=== PATIENT | female | born 1995 | race Caucasian/White ===

== ENCOUNTER 2019-02-21 23:03 | Emergency (ER) | payer MEDICAID ==
[~2019-02-21] VITALS: Ht 157.5 cm; Wt 63.5 kg
[2019-02-21 23:05] VITALS: BP 121/90
--- NOTE | 2019-02-21 23:05 | NUR ---
TO BED # 07 AMBULATORY
--- NOTE | 2019-02-21 23:21 | NUR ---
EKG PERFORMED AT BEDSIDE. PT COVERED IN GOWN DURING PROCEDURE
--- NOTE | 2019-02-21 23:23 | NUR ---
Dr. Cortes examining patient.
[2019-02-21] MEDS ORDERED: IBUPROFEN 600 MG TAB PO ONE (23:30)
--- NOTE | 2019-02-21 23:30 | NUR ---
24 Y/O F PRESENTED TO ED WITH C/O L UPPER CHEST PAIN X 1 HOUR. 2/10 PAIN RIGHT NOW, DULL PRESSURE LIKE PAIN. PAIN WAS MORE INTENSE AROUND 2240 AT TIME OF ONSET, SHARP. PER PT "IT FELT LIKE TENSION IN MY CHEST." +NUMBNESS IN BUE. +CMS. C/O DIFFICULTY BREATHING. O2 SATURATION MAINTAINED AT 100% ON ROOM AIR. BILATERAL LUNG FERNANDO CLEAR. ERMD NOTIFIED. WILL CONTINUE TO MONITOR.
--- NOTE | 2019-02-21 23:40 | NUR ---
PT REFUSED MEDICATION. PER PT "I DONT LIKE TAKING MEDS." DR RICHARDSON MADE AWARE.
--- NOTE | 2019-02-21 23:47 | NUR ---
X-Ray at bedside.
[2019-02-21 23:55] LABS: BASOPHILS # (AUTO) 0.1 K/uL (0.00-0.22); EOSINOPHILS # (AUTO) 0.1 K/uL (0-0.4); EOSINOPHILS % (AUTO) 1.4 % (0.0-4.0); HEMATOCRIT 43.1 % (36-48); HEMOGLOBIN 14.5 g/dL (12.0-16.0); LYMPHOCYTES # (AUTO) 3.2 K/uL (2.5-16.5); LYMPHOCYTES % (AUTO) 33.3 % (20.5-51.1); MEAN CORPUSCULAR HEMOGLOBIN 31 pg (27-31); MEAN CORPUSCULAR HGB CONC 34 g/dL (33-37); MEAN CORPUSCULAR VOLUME 92.5 fL (80-94); MONOCYTES # (AUTO) 0.7 K/uL (0.8-1.0); MONOCYTES % (AUTO) 7.1 % (1.7-9.3); NEUTROPHILS # (AUTO) 5.5 K/uL (1.8-7.7); NEUTROPHILS % (AUTO) 57.2 % (42.2-75.2); PLATELET COUNT (AUTO) 187 K/uL (140-450); RED BLOOD CELL COUNT(AUTO) 4.66 MIL/uL (4.20-5.40); RED CELL DISTRIBUTION WIDTH 12.9 % (11.6-13.7); WHITE BLOOD COUNT (AUTO) 9.5 K/uL (4.8-10.8)
[2019-02-22 00:10] LABS: ALBUMIN 3.9 g/dL (3.4-5.0); CARBON DIOXIDE 26.7 mmol/L (21-32); CREATININE 0.8 mg/dL (0.6-1.3); POTASSIUM 3.7 mmol/L (3.5-5.1); TOTAL BILIRUBIN 0.4 mg/dL (0.0-1.0)
--- NOTE | 2019-02-22 00:53 | NUR ---
Patient discharged with v/s stable. Written and verbal after care instructions given and explained. Patient verbalized understanding. Carried with steady gait. All questions addressed prior to discharge. Advised to follow up with PMD. PT PAIN LEVEL DECREASED TO 2/10 PRIOR TO D/C
[2019-02-22 00:56] VITALS: BP 108/77
== END 2019-02-22 00:53 | disposition home or self-care (01) ==
LOC: MED 23:03
DX: R07.89 Other chest pain (principal); R06.02 Shortness of breath; R20.0 Anesthesia of skin
CPT/HCPCS: 36415; 71045; 80053; 84484; 85025; 85379; 93005; 99284; Q0092